=== PATIENT | male | born 2000 | race Caucasian/White ===

== ENCOUNTER 2025-02-27 12:37 | Emergency (ER) | payer SELFPAY ==
[2025-02-27 12:38] VITALS: BP 150/102; PULSE 73; RESP 18; TEMP 36.2; O2SAT 99; BMI 25.7
--- NOTE | 2025-02-27 13:16 | EDS_ITS ---
HPI History of Present Illness Chief Complaint: Laceration Informant: patient Onset/Context/Timing Onset: Today Mechanism/Context: Blunt Injury and Incised Location: Lower lip Worsened by: Nothing Relieved by: Nothing Associated Symptoms Associated Symptoms: Negative for Parasthesias, Weakness, Loss of function, Inability to ambulate, Loss of consciousness or Amnesia Narrative Narrative: Patient presents with lip laceration that occurred today. Patient states he was at wrestling practice when another wrestler hit him in his mouth. Patient states that he thinks his tooth went through his lower lip. Patient denies any head injury or loss of consciousness. Patient denies any paresthesias or weakness. Patient states his last tetanus was within 5 years. Patient currently denies any pain or loose teeth. Patient denies any other injuries. PFSH PFSH Medical History no medical history no medical history Home Medications ?Medication ?Instructions ?Recorded ?Last Taken ?Type NK 02/27/25 Unknown History Allergy/AdvReac Type Severity Reaction Status Date / Time No Known Allergies Allergy Verified 02/27/25 12:38 Surgical History History of ankle surgery Social History Smoking Status: Never smoker ROS ROS ED Constitutional Constitutional ED: Denies chills or fever(s) Eyes Eyes: Denies blurry vision or change in vision ENT ENT ED: Denies rhinorrhea or sore throat Cardiovascular Cardiovascular: Denies chest pain or palpitations Respiratory/Chest Respiratory/Chest: Denies cough or dyspnea Gastrointestinal Gastrointestinal: Denies nausea or vomiting Genitourinary Genitourinary ED: Denies dysuria or hematuria Musculoskeletal Musculoskeletal: Denies back pain or neck pain Integumentary Denies abscess or rash Neurologic Neurologic: Denies headache(s) or weakness Allergic/Immunologic Allergic/Immunologic ED: Denies mouth swelling or urticaria EXAM Physical Exam Const Vital Signs: 02/27/25 12:38 Temperature 97.2 F L Temperature Source Temporal Pulse Rate 73 Respiratory Rate 18 Blood Pressure 150/102 H Blood Pressure Mean 118 Pulse Ox 99 Oxygen Delivery Method Room Air Positive well nourished and well developed General Appearance ED: well developed and NAD HEENT HEENT Narrative: There is a 1.5 cm full-thickness laceration to the lower lip. There is moderate gapping of the wound margins. There is no active bleeding noted. There are no foreign bodies noted. Teeth are intact. Neck full ROM Neuro oriented x3, CN's II-XII intact bilaterally, moves all extremities, no focal motor deficits and no sensory deficits noted John Coma Scale: document GCS findings Spontaneous Obeys Commands Oriented 15 Sensorium / Orientation: alert Motor Exam: strength 5/5 throughout Psych mental status grossly normal and thought process normal PROC Procedures Lacerations Lower lip: Length: 1.5 cm Depth: Sub Q Shape: Stellate Prep: Sterile Conditions and Chlorhexadine Laceration repair: Irrigated, Lidocaine and Local Number of Sutures/Sathish: 5 Suture Information: Ethilon, Simple and 5-0 MDM MDM MDM Narrative Medical decision making narrative: The wound was cleaned and irrigated with copious amounts of normal saline. The wound was anesthetized with 1% plain lidocaine via infraorbital block and locally. The wound was closed with 5 simple interrupted # 5-0 nylon sutures under sterile technique. Patient tolerated the procedure well. Bacitracin dressing was applied. Patient was instructed to keep the wound clean and dry. Patient was instructed to avoid salty foods and spicy foods. Patient was i nstructed to follow-up in 5 days for wound recheck and suture removal. Patient understood and was agreeable with the plan. All questions were answered. Discharge Plan Triage Chief Complaint: Laceration ED Provider: Hammad Mcpherson Dx/Rx/DC Orders Clinical Impression: Laceration of lower lip, Head injury Instructions: ED FACIAL LACERATION Suture Tape, ED Laceration Minimize Scars Prescriptions: No Action NK Primary Care Provider: Lisa Omalley NP Referrals: Lisa Omalley NP, [facility] [Primary Care Provider, [facility]] - 5 Days for suture removal Print Language: [place] Disposition Disposition: Home, Self Care
[2025-02-27] MEDS: Lidocaine 1% (20 ml mdv) 20 ML Vial INFILT (13:21)
== END 2025-02-27 15:30 | disposition home or self-care (01) ==
PROVIDERS: Emergency Provider Emergency Medicine; PCP Nurse Practitioner Family; Visit Provider Emergency Medicine
DX: S01.511A Laceration without foreign body of lip, initial encounter (principal); S09.90XA Unspecified injury of head, initial encounter; W50.0XXA Accidental hit or strike by another person, initial encounter; Y93.72 Activity, wrestling
CPT/HCPCS: 12011; 99283